=== PATIENT | male | born 1965 | race Caucasian/White ===

== ENCOUNTER 2018-04-10 09:46 | Day surgery (SDC) | payer BC ==
[2018-04-05 08:40] VITALS: BMI 28.0
[~2018-04-10 09:46] MED LIST: DEXAMETHASONE SOD PHOSPHATE 10 MG/ML 1 ML VIAL IV ONE; DEXAMETHASONE SOD PHOSPHATE 4 MG/ML 1 ML VIAL IV ONE; FAMOTIDINE 20 MG/2 ML VIAL IV ONE; HYDROmorphone 0.5 MG/0.5 ML SYRINGE IVP PRN; LIDOCAINE 1% 20 ML VIAL (10MG/ML) FOR IV START INTRADERMA PRN; MIDAZOLAM (PF) 2 MG/2 ML VIAL IV PRN; ONDANSETRON 4 MG/2 ML VIAL IVP ONE; Pre Op ABX Message 1 EACH MISC MISCELLANE ONE; SCOPOLAMINE 1.5MG/72HR PATCH TRANSDERM ONE; ceFAZolin 1,000 MG in DEXTROSE/WATER 1 50ML.BAG IV ONE
[2018-04-10] MEDS: OXYMETAZOLINE 0.05% NASL SPRAY 1 SPRAY BOTTLE NASAL ONE ×5 (11:00→11:21)
[2018-04-10] MEDS: LACTATED RINGERS 1,000 ML IV SCH ×2 (11:13→12:09)
[2018-04-10] MEDS ORDERED: LIDOCAINE 1%-EPI 1:100,000 20 ML VIAL SQ ONE ×2 (12:12→12:33)
[2018-04-10] MEDS ORDERED: SUCCINYLCHOLINE CHLORIDE 100 MG/5 ML SYR IV ONE (12:14)
[2018-04-10] MEDS ORDERED: MIDAZOLAM 2 MG/2 ML VIAL ONE (12:14)
[2018-04-10] MEDS ORDERED: PROPOFOL 10 MG/ML 20 ML VIAL IV ONE ×2 (12:14)
[2018-04-10] MEDS ORDERED: LIDOCAINE 1% INJ 10MG/ML (20 ML MDV) ONE (12:14)
[2018-04-10] MEDS ORDERED: fentaNYL (PF) 50 MCG/ML 2 ML AMP ONE (12:14)
[2018-04-10] MEDS ORDERED: BACITRACIN 500 UNIT/GM OINT 28.4 GM TUBE TOPICAL ONE (12:59)
--- NOTE | 2018-04-10 13:03 | P.OP ---
Date of Procedure: 04/10/18 Preoperative Diagnosis: Deviated nasal septum Inferior turbinate hypertrophy Chronic sinusitis Postoperative Diagnosis: Same Procedure(s) Performed: Septoplasty Outfracture and submucous resection of the inferior turbinates Bilateral endoscopic sinus surgery including bilateral maxillary antrostomy Anesthesia: MICKEY Surgeon: Shalom Tapia Estimated Blood Loss (ml): 5 Pathology: other (Nasal septal bone and cartilage and sinus contents) Condition: stable Disposition: PACU Indications for Procedure: This is a 53-year-old white male with chronic nasal airway obstruction and congestion as well as recurrent and chronic sinusitis he had computed tomography scan which showed evidence of chronic sinusitis in the maxillary sinuses. Operative Findings: Nasal septum deviated to the right anteriorly and to the left posteriorly, inferior turbinate hypertrophy bilaterally maxillary ostia were obstructed bilaterally with mild mucosal thickening in the maxillary sinuses Description of Procedure: Patient was brought in the operative suite and placed in a supine position. Patient underwent induction of general anesthesia with oral endotracheal intubation without difficulty. The patient was prepped and draped in usual aseptic fashion with the orbits in the operating field for monitoring throughout the case and CT scanning on the computer screen for review throughout the case also. 1% lidocaine with 1-100,000 epinephrine was infused submucosally both sides nasal septum as well as lateral nasal wall bilaterally and anterior tips of base bilaterally. While this is taking vasoconstrictive effect the inferior turbinates were infractured with Sawyer elevator partial submucous resection inferior turbinates performed with Coblation wand to ablate a portion of the submucosal soft tissue. The inferior turbinates were then outfractured with the Sawyer elevator. A left hemitransfixion incision was made with the mucoperichondrial medial fascia flap the left elevated. Bony cartilaginous junction was disarticulated and the fascia flap on the right was elevated. Bony nasal septal deformities were removed Carlito forceps. An inferior cartilaginous strip was removed leaving a full 1.5 cm caudal strut. Checking intranasally this corrected nasoseptal deformities and the hemitransfixion incision was closed with a running 4-0 chromic suture. Full 0 endoscopic examination is performed bilaterally. Beginning on the left the middle turbinate was medialized with a Chelsea elevator and the next ostium was located with a ballpoint probe. Infundibulotomy was performed followed by uncinectomy. Max antrostomy was enlarged at the expense of the anterior posterior fontanelle taking care anteriorly not to injure the lacrimal bone. The macular sinus was then explored with 30 and 70 endoscope with mild thickening noted. Attention was then turned to the right where the procedures were followed as they were on the left including medialization middle turbinate infundibulotomy uncinectomy and maxillary antrostomy with exploration. Once this completed a pledget of standard nasal pore nasal dressing was placed in the middle meatus under direct visualization. Bilateral Olivera airway splints coated bacitracin ointment were placed in nasal cavities and sutured trans- septally with a 4-0 Vicryl suture. The patient was then suctioned in oral gastric fashion. The patient was allowed to emerge from general anesthesia having tolerated procedure well and was transferred to the postop recovery area in satisfactory condition.
[2018-04-10 13:28] VITALS: TEMP 97.7
[2018-04-10 14:46] VITALS: RESP 16
[2018-04-10 15:18] VITALS: BP 135/90; PULSE 76
== END 2018-04-10 15:24 | disposition home or self-care (01) ==
LOC: OR 09:46
PROVIDERS: ATTEND Otolaryngology
DX: J34.2 Deviated nasal septum (principal); J32.9 Chronic sinusitis, unspecified; J34.3 Hypertrophy of nasal turbinates; J45.909 Unspecified asthma, uncomplicated; I51.9 Heart disease, unspecified; H91.90 Unspecified hearing loss, unspecified ear; Z87.891 Personal history of nicotine dependence; Z82.49 Family history of ischemic heart disease and other diseases of the circulatory system; Z83.3 Family history of diabetes mellitus; Z79.82 Long term (current) use of aspirin; Z79.899 Other long term (current) drug therapy
CPT/HCPCS: 88305; 88300; 30520; 30140; 31256; J2250; J1100; J2405; J2001; J3010; J0690; J0330; J2704

== ENCOUNTER → 2024-09-05 | Outpatient (CLI) | payer BC ==
[2024-09-05 15:26] LABS: HCT 43.6 % (39.6-50.0); HGB 15.0 g/dL (13.0-17.0); MCH 30.2 pg (27.0-32.0); MCHC 34.4 g/dL (32.0-37.0); MCV 87.9 FL (80.0-97.0); NRBC Per 100 WBC 0 X 10*3/uL (0.00-0.01); Platelet Count 199 X 10*3/uL (140-440); RBC 4.96 X 10*6/uL (4.40-5.60); RDW 12.2 % (11.5-14.5); WBC 5.63 X 10*3/uL (4.50-10.00)
[2024-09-05 15:59] LABS: Prostate Specific Antigen 0.83 ng/mL (0.000-4.500)
== END | disposition home or self-care (01) ==
LOC: LABWHC1 08:28
PROVIDERS: ATTEND Urology
DX: E29.1 Testicular hypofunction (principal)
CPT/HCPCS: 36415; 84153; 84403; 85027